=== PATIENT | male | born 1950 | race Caucasian/White ===

== ENCOUNTER → 2016-12-12 | Outpatient (CLI) | payer MEDICARE, BC | LOC: MW.CHPS 08:00 | PROVIDERS: ATTEND Plastic Surgery | DX: M72.0 Palmar fascial fibromatosis [Dupuytren] (principal) | CPT/HCPCS: G0463 ==

== ENCOUNTER → 2017-02-12 | Outpatient (CLI) | payer MEDICARE, BC | LOC: MW.CHPS 08:00 | PROVIDERS: ATTEND Plastic Surgery | DX: M72.0 Palmar fascial fibromatosis [Dupuytren] (principal); Z98.890 Other specified postprocedural states | CPT/HCPCS: G0463 ==

== ENCOUNTER 2021-01-19 11:28 | Day surgery (SDC) | payer MEDICARE, OTHER ==
[~2021-01-19 11:28] MED LIST: Lactated Ringers 1,000 ML IV SCH
--- NOTE | 2021-01-19 12:54 | PCM.PREANE ---
Preanesthetic Assessment - Anesthesia/Transfusion/Family Hx Anesthesia History: Prior Anesthesia Without Reaction Family History of Anesthesia Reaction: No Transfusion History: No Prior Transfusion(s) - Review of Systems General: No Symptoms Pulmonary: No Symptoms Cardiovascular: No Symptoms Gastrointestinal: No Symptoms Neurological: No Symptoms Other: Reports: None - Physical Assessment NPO Status Date: 01/19/21 NPO Status Time: 00:01 Vital Signs: Last Vital Signs Temp 97.0 F 01/19/21 12:30 Pulse 54 L 01/19/21 12:30 Resp 16 01/19/21 12:30 BP 155/70 H 01/19/21 12:30 Pulse Ox 97 01/19/21 12:30 Height: 6 ft 1 in Weight: 192 lb ASA Class: 2 Mental Status: Alert & Oriented x3 Airway Class: Mallampati = 2 Dentition: Reports: Normal Dentition ROM/Head Extension: Full Lungs: Clear to Auscultation, Normal Respiratory Effort Cardiovascular: Regular Rate, Regular Rhythm - Allergies Allergies/Adverse Reactions: Allergies Allergy/AdvReac Type Severity Reaction Status Date / Time cat dander Allergy Sneezing Verified 01/19/21 12:34 - Anesthesia Plan Pre-Op Medication Ordered: None - Acknowledgements Anesthesia Type Planned: General Anesthesia Pt an Appropriate Candidate for the Planned Anesthesia: Yes Alternatives and Risks of Anesthesia Discussed w Pt/Guardian: Yes Pt/Guardian Understands and Agrees with Anesthesia Plan: Yes Additional Comments: npo etoh occ tob quit 1999 no cv problems bmi 25 par no questions PreAnesthesia Questionnaire HEENT History: Reports: Allergic Rhinitis, Other (See Below) Other HEENT History: wears glasses Cardiovascular History: Reports: None Respiratory History: Reports: None Gastrointestinal History: Reports: Colon Polyp Genitourinary History: Reports: None Musculoskeletal History: Reports: None Neurological History: Reports: None Psychiatric History: Reports: None Endocrine/Metabolic History: Reports: None Hematologic History: Reports: None Immunologic History: Reports: None Oncologic (Cancer) History: Reports: None Dermatologic History: Reports: None - Past Surgical History Head Surgeries/Procedures: Reports: None HEENT Surgical History: Reports: None Cardiovascular Surgical History: Reports: None Respiratory Surgical History: Reports: None GI Surgical History: Reports: Colonoscopy Male Surgical History: Reports: None Endocrine Surgical History: Reports: None Neurological Surgical History: Reports: None Musculoskeletal Surgical History: Reports: Other (See Below) Other Musculoskeletal Surgeries/Procedures:: fasciotomy for dupuytren's contracture both hands Oncologic Surgical History: Reports: None Dermatological Surgical History: Reports: None - SUBSTANCE USE Tobacco Use Status *Q: Former Tobacco User Tobacco Use Within Last Twelve Months: No - HOME MEDS Home Medications: Home Meds . [No Known Home Meds] 01/13/21 [History] - CURRENT (IN HOUSE) MEDS Current Meds: Current Medications Lactated Ringer's (Ringers, Lactated) 1,000 mls @ 125 mls/hr IV ASDIRECTED [facility] Last Admin: 01/19/21 12:33 Dose: 125 mls/hr Documented by:
[2021-01-19] MEDS ORDERED: fentaNYL 100 MCG/2 ML SDV ONE (14:06)
[2021-01-19] MEDS ORDERED: Midazolam 1 MG/ML 2 ML SDV ONE (14:06)
[2021-01-19] MEDS ORDERED: Propofol 200 MG/20 ML SDV ONE ×2 (14:06→14:25)
--- NOTE | 2021-01-19 15:22 | PCM.OPNOTE ---
- General Post-Op/Procedure Note Date of Surgery/Procedure: 01/19/21 Operative Procedure(s): Colonoscopy and polypectomies Findings: Colon polyps Dictation number [id number] Pre Op Diagnosis: History of colon polyps Post-Op Diagnosis: colon polyps Primary Surgeon: Craig Griffith Pathology: colon polyps. Complications: None Condition: Good Free Text/Narrative:: Intake & Output 01/19/21 01/19/21 01/19/21 06:59 14:59 22:59 Intake Total 700 Balance 700
[2021-01-19 15:26] VITALS: BP 118/72; PULSE 55
--- NOTE | 2021-01-19 15:29 | PCM.POSTAN ---
POST ANESTHESIA ASSESSMENT - MENTAL STATUS Mental Status: Alert - VITAL SIGNS Vital Signs: Last Vital Signs Temp 36.1 C 01/19/21 15:20 Pulse 55 L 01/19/21 15:20 Resp 16 01/19/21 15:20 BP 118/72 01/19/21 15:20 Pulse Ox 97 01/19/21 15:20 - RESPIRATORY Respiratory Status: Respiratory Rate WNL - CARDIOVASCULAR CV Status: Pulse Rate WNL - GASTROINTESTINAL GI Status: No Symptoms - POST OP HYDRATION Hydration Status: Adequate & Stable
--- NOTE | 2021-01-19 15:54 | PCM48HPAN ---
Post Anesthesia Note - EVALUATION WITHIN 48HRS OF ANESTHETIC Vital Signs in Normal Range: Yes Patient Participated in Evaluation: Yes Respiratory Function Stable: Yes Airway Patent: Yes Cardiovascular Function Stable: Yes Hydration Status Stable: Yes Pain Control Satisfactory: Yes Nausea and Vomiting Control Satisfactory: Yes Mental Status Recovered: Yes Vital Signs: Last Vital Signs Temp 36.1 C 01/19/21 15:20 Pulse 55 L 01/19/21 15:20 Resp 16 01/19/21 15:20 BP 118/72 01/19/21 15:20 Pulse Ox 97 01/19/21 15:20
--- NOTE | 2021-01-20 08:36 | OR ---
SURGEON: INDER MCMANUS MD DATE OF PROCEDURE: 01/19/2021 PREOPERATIVE DIAGNOSES: 1. Family history of colon polyps. 2. Family history of colon cancer. POSTOPERATIVE DIAGNOSIS: Colon polyps; one at 60 cm, one in the rectal vault. EXTENT OF COLONOSCOPY: To the cecum. BOWEL PREP: Excellent. LIMITATIONS: None. REASON FOR PROCEDURE: The patient is a pleasant 70-year-old gentleman whose last colonoscopy was 5 years ago. He says this was normal. The patient does have a family history of colon cancer with mother having colon cancer. He does have a history of colon polyps in the past. PROCEDURE IN DETAIL: Physical examination was performed. The major risks and benefits associated with the procedure were explained to the patient in detail. The patient verbalized understanding and agreement of the same. The patient was then connected to appropriate monitoring device. IV was started. EKG, pulse oximetry, blood pressure, and capnography were monitored throughout the procedure. Continuous oxygen and sedation were provided by the anesthesiologist. The patient was placed in the left lateral decubitus position and sedation was began. After adequate sedation was achieved, digital rectal exam was performed. No rectal masses or polyps were felt. Now, a well-lubricated Olympus colonoscope was inserted into the rectum and advanced under direct visualization to the level of the cecum. Cecum was identified by both visual and anatomic landmarks. Photographs were taken of the cecal cap. Cecal cap did kind of fold in on itself. Did spend quite a bit of time, but did get into the cecum. I did identify the ileocecal valve. The patient did have a slightly redundant colon that required some external pressure to get the scope into the cecum. Now, the scope was slowly withdrawn in somewhat circular fashion looking at the color, texture, anatomy, and integrity of the mucosa from the cecum to the anal canal. The patient had some minimal liquid stool. After suctioning it out, I did get a good look at the mucosa. The patient did have a small polyp right about 60 cm, removed with a cold biopsy polypectomy. Polyps appeared to be completely removed with good hemostasis. Scope was continued to be withdrawn. The patient did have another polyp right in the rectal vault. This was slightly larger, was removed with cold snare polypectomy. This was completely removed. Scope was retroflexed in the rectum. Scope was completely removed and the procedure was terminated. ENDOSCOPIC DIAGNOSIS: Colon polyps x2; one at 60 cm, one in the rectal vault. RECOMMENDATION: Followup colonoscopy will depend on pathology, but most likely in 5 years. BETO / MELIDA /[id number]
== END 2021-01-19 15:52 | disposition home or self-care (01) ==
LOC: MW.SDS 11:28
PROVIDERS: ATTEND Surgery
DX: Z12.11 Encounter for screening for malignant neoplasm of colon (principal); D12.8 Benign neoplasm of rectum; D12.6 Benign neoplasm of colon, unspecified; Z91.09 Other allergy status, other than to drugs and biological substances; Z87.891 Personal history of nicotine dependence; Z86.010 Personal history of colon polyps; Z80.0 Family history of malignant neoplasm of digestive organs
CPT/HCPCS: 45380; 45385; 88305; J2250; J2704; J3010; J7120

== ENCOUNTER 2024-01-25 08:00 | Day surgery (SDC) | payer MEDICARE, OTHER ==
[2024-01-25] MEDS ORDERED: propofoL 50 ML ONE (08:34)
[2024-01-25] MEDS ORDERED: dexmedeTOMIDine HCl 200 MCG/2 ML SDV ONE (08:36)
[2024-01-25] MEDS ORDERED: Water For Injection, Sterile 20 ML ONE (08:36)
[2024-01-25] MEDS: Lactated Ringers 1,000 ML IV SCH (08:43)
[2024-01-25 11:44] VITALS: BP 138/72; PULSE 59
== END 2024-01-25 12:00 | disposition home or self-care (01) ==
LOC: MW.SDS 08:00
PROVIDERS: ATTEND Surgery
DX: Z12.11 Encounter for screening for malignant neoplasm of colon (principal); Z80.0 Family history of malignant neoplasm of digestive organs; Z86.010 Personal history of colon polyps; Z85.038 Personal history of other malignant neoplasm of large intestine; Z86.16 Personal history of COVID-19; Z87.891 Personal history of nicotine dependence; Z91.048 Other nonmedicinal substance allergy status; Z79.899 Other long term (current) drug therapy
CPT/HCPCS: J2704; J3490; J7120